=== PATIENT | male | born 1945 | race Caucasian/White ===

== ENCOUNTER 2019-08-29 00:19 | Outpatient (CLI) | payer MEDICARE, BC, SELFPAY ==
[2019-08-29 17:34] LABS: SARS-CoV-2 RNA PCR Negative
== END 2019-08-29 00:20 | disposition home or self-care (01) ==
LOC: ANHCOVIDDT 00:19
PROVIDERS: PCP Family Medicine; Visit Provider Internal Medicine Gastroenterology
DX: Z01.812 Encounter for preprocedural laboratory examination (principal); Z11.59 Encounter for screening for other viral diseases
CPT/HCPCS: 87635; C9803; U0003

== ENCOUNTER 2019-08-31 00:46 | Day surgery (SDC) | payer MEDICARE, BC, SELFPAY ==
[2019-08-24 13:40] VITALS: BMI 34.4
[2019-08-31 06:30] VITALS: BP 116/81; PULSE 62; RESP 20; TEMP 36.8; O2SAT 96
[2019-08-31] MEDS: LACTATED RINGERS 1,000 ML 150 ML IV CONT (06:51)
--- NOTE | 2019-08-31 07:14 | WPDANESEPPF ---
Anes - Initial Pre Proc Eval Procedure: Operation Date: 08/31/19 07:30 Proposed Procedures p Screening Colonoscopy - Jesús Kang MD Date/Time: 08/31/19 07:14 Surgeon: Jesús Kang MD Pre Op Diagnosis: hx of colon polyps Patient Data Age: 74 Gender: M Height: 1.78 m Weight: 108.1 kg Last Vital Signs Temp 36.8 C 08/31/19 06:30 Pulse 62 08/31/19 06:30 Resp 20 08/31/19 06:30 BP 116/81 08/31/19 06:30 Pulse Ox 96 08/31/19 06:30 Allergies Allergy/AdvReac Type Severity Reaction Status Date / Time No Known Allergies Allergy Mild Verified 08/31/19 06:29 Home Medications Medication Instructions Recorded Confirmed Type aspirin 81 mg tablet,delayed 81 mg PO DAILY 02/22/19 08/24/19 History release atorvastatin 20 mg tablet 20 mg PO DAILY 02/22/19 08/24/19 History doxazosin 8 mg tablet 8 mg PO DAILY 02/22/19 08/24/19 History finasteride 5 mg tablet 5 mg PO DAILY 02/22/19 08/24/19 History lisinopril 10 mg tablet 10 mg PO DAILY 02/22/19 08/24/19 History lutein 20 mg tablet 20 mg PO DAILY 02/22/19 08/24/19 History famotidine 20 mg tablet 20 mg PO DAILY PRN 06/29/19 08/24/19 History cholecalciferol (vitamin D3) 50 mcg PO DAILY 08/24/19 08/24/19 History [Vitamin D3] latanoprost 1 drp OPHTHALMIC (EYE) HS 08/24/19 08/24/19 History magnesium citrate 80 mg PO DAILY 08/24/19 08/24/19 History omega 3-ire-ugl-fish oil [Fish Oil] 1 cap PO DAILY 08/24/19 08/24/19 History timolol maleate 1 drp OPHTHALMIC (EYE) DAILY 08/24/19 08/24/19 History Patient hx anesthesia problems: none Family hx anesthesia problems: none PMFSH Past Medical History Medical History (Updated 08/31/19 @ 06:57 by Willian Irizarry DO) Calcaneal fracture Essential (primary) hypertension Gastro-esophageal reflux disease without esophagitis Mixed hyperlipidemia Type 2 diabetes mellitus without complications Surgical History Surgical History H/O hernia repair History of appendectomy Social History Social History Smoking status: Never smoker Alcohol intake: current Gender identity (if verbalized by the patient): Male Anes - Eval Final PreProcedure Day of Procedure 08/31/19 07:14 Patient weight: obese Heart: regular rate and rhythm Lungs: clear to auscultation and normal air movement Airway: Mallampati scale class 1 Neurological: alert and oriented Last oral intake: >/= 8 hours ASA classification: III Emergent: no Anesthetic plan: proceed Anesthesia type and monitoring: general GIVS and standard monitoring Informed Consent: The patient's anesthetic plan and its attendant risks and benefits were discussed with the patient/family/POA. Questions were solicited and answers provided to the satisfaction of the patient/family/POA.
--- NOTE | 2019-08-31 08:05 | WPDGICN ---
Assessment and Plan Assessment and plan (1) History of colon polyps: Code(s): Z86.010 - Personal history of colonic polyps Status: Acute Assessment and Plan: Patient has a history of adenomatous colon polyp removed 2014. Plan is for surveillance colonoscopy now on a 5 year intervals in the future. (2) Obesity: Code(s): E66.9 - Obesity, unspecified Status: Acute GI Consult Note Consult date/time: 08/31/19 08:05 HPI: Sabino Mina is a 74 year old male Seen in evaluation at the request of Dr. Isadora Wiseman. patient has a history of colon polyps. Presents today for follow-up colonoscopy. Patient's current weight appetite bowel movements are normal. He denies abdominal pain. His weight appetite bowel movements are normal. His family history is noncontributory. Review of Systems Review of Systems: All systems reviewed & are unremarkable except as noted in HPI and below PMFSH Past Medical History Medical History Calcaneal fracture Essential (primary) hypertension Gastro-esophageal reflux disease without esophagitis Mixed hyperlipidemia Type 2 diabetes mellitus without complications Surgical History Surgical History H/O hernia repair History of appendectomy Family History Family History Grandparent Family history of cardiovascular disease Cerebrovascular accident Father Diabetes mellitus Mother Diabetes mellitus Sibling Diabetes mellitus Other Family history of glaucoma Social History Social History Smoking status: Never smoker Alcohol intake: current Gender identity (if verbalized by the patient): Male Meds Home Medications and Allergies Home Medications Medication Instructions Recorded Confirmed Type aspirin 81 mg tablet,delayed 81 mg PO DAILY 02/22/19 08/24/19 History release atorvastatin 20 mg tablet 20 mg PO DAILY 02/22/19 08/24/19 History doxazosin 8 mg tablet 8 mg PO DAILY 02/22/19 08/24/19 History finasteride 5 mg tablet 5 mg PO DAILY 02/22/19 08/24/19 History lisinopril 10 mg tablet 10 mg PO DAILY 02/22/19 08/24/19 History lutein 20 mg tablet 20 mg PO DAILY 02/22/19 08/24/19 History famotidine 20 mg tablet 20 mg PO DAILY PRN 06/29/19 08/24/19 History cholecalciferol (vitamin D3) 50 mcg PO DAILY 08/24/19 08/24/19 History [Vitamin D3] latanoprost 1 drp OPHTHALMIC (EYE) HS 08/24/19 08/24/19 History magnesium citrate 80 mg PO DAILY 08/24/19 08/24/19 History omega 9-vyv-lsu-fish oil [Fish Oil] 1 cap PO DAILY 08/24/19 08/24/19 History timolol maleate 1 drp OPHTHALMIC (EYE) DAILY 08/24/19 08/24/19 History Allergies Allergy/AdvReac Type Severity Reaction Status Date / Time No Known Allergies Allergy Mild Verified 08/31/19 06:29 Vital Signs Vital Signs - 24 hr 08/31/19 06:30 Temperature 36.8 C Pulse Rate 62 Respiratory Rate 20 Blood Pressure 116/81 Pulse Oximetry 96 Exam Narrative: Exam Narrative: Physical exam reveals patient to be alert. Vital signs stable. HEENT exam unremarkable. Lungs are clear to auscultation and percussion. Heart is without murmur or extra sounds. Abdominal exam bowel sounds are present soft nontender with no organomegaly. Digital external rectal exam normal.
[2019-08-31 08:07] VITALS: BP 107/63; PULSE 58; RESP 20; O2SAT 96
[2019-08-31 08:17] VITALS: BP 109/70; PULSE 53; RESP 20; O2SAT 96
[2019-08-31 08:27] VITALS: BP 114/77; PULSE 54; RESP 16; O2SAT 96
== END 2019-08-31 08:48 | disposition home or self-care (01) ==
PROVIDERS: PCP Family Medicine; Visit Provider Internal Medicine Gastroenterology
PROC: 0DJD8ZZ Inspection of Lower Intestinal Tract, Via Natural or Artificial Opening Endoscopic (ICD-10-PCS; CPT 45378; principal; 2019-08-31 07:30)
DX: Z12.11 Encounter for screening for malignant neoplasm of colon (principal); K63.5 Polyp of colon; K57.30 Diverticulosis of large intestine without perforation or abscess without bleeding; K64.8 Other hemorrhoids; E66.9 Obesity, unspecified; Z68.34 Body mass index [BMI] 34.0-34.9, adult; I10 Essential (primary) hypertension; E11.9 Type 2 diabetes mellitus without complications; E78.2 Mixed hyperlipidemia; K21.9 Gastro-esophageal reflux disease without esophagitis; Z79.82 Long term (current) use of aspirin
CPT/HCPCS: G0105; J2704; J7120

== ENCOUNTER 2023-10-24 13:58 | Outpatient (CLI) | payer MEDICARE, BC, SELFPAY ==
[2023-10-24 16:05] LABS: Anion Gap 11 mmol/L (4-12); Blood Urea Nitrogen 20 mg/dL (9-20); Calcium 9.4 mg/dL (8.4-10.2); Carbon Dioxide 26 mmol/L (22-30); Chloride 103 mmol/L (98-107); Estimated Glomerular Filt Rate > 60; Glucose 104 mg/dL (65-110); Potassium 3.5 mmol/L (3.4-5.0); Sodium 140 mmol/L (137-145)
== END 2023-10-24 13:59 | disposition home or self-care (01) ==
PROVIDERS: Anesthesiology; PCP Internal Medicine; Visit Provider Urology
DX: E11.9 Type 2 diabetes mellitus without complications (principal)
CPT/HCPCS: 36415; 80048

== ENCOUNTER 2023-10-27 02:13 | Day surgery (SDC) | payer MEDICARE, BC, SELFPAY ==
--- NOTE | 2023-10-21 07:21 | PM.HPGS ---
History of Present Illness History of Present Illness Consent: Risks, benefits, and alternatives have been discussed and questions answered. Patient agrees to proceed with procedure. Chief complaint: elevated psa Narrative: Sabino Mina is a 78 year old male who has never had a prostate biopsy in the past but elevated PSA to 8.88. His prostatism is controlled with oral medications. After discussion of options he is elected for [facility]., MRI guided biopsy. He is aware of the risks including, but not limited to, rectal bleeding, hematuria, fair to a prostate cancer Review of Systems Review of Systems: All systems reviewed & are unremarkable except as noted in HPI and below PMFSH Past Medical History Medical History (Updated 06/30/20 @ 09:25 by Anthony Purvis MD) Calcaneal fracture Essential (primary) hypertension Gastro-esophageal reflux disease without esophagitis Mixed hyperlipidemia Type 2 diabetes mellitus without complications Surgical History Surgical History H/O hernia repair History of appendectomy Family History Family History Grandparent Family history of cardiovascular disease Cerebrovascular accident Father Diabetes mellitus Mother Diabetes mellitus Sibling Diabetes mellitus Other Family history of glaucoma Social History Social History Smoking status: Never smoker Alcohol intake: current Gender identity (if verbalized by the patient): Male Meds Home Medications and Allergies Home Medications Medication Instructions Recorded Confirmed Type aspirin 81 mg tablet,delayed 81 mg PO DAILY 02/22/19 06/30/20 History release atorvastatin 20 mg tablet 20 mg PO DAILY 02/22/19 06/30/20 History doxazosin 8 mg tablet 8 mg PO DAILY 02/22/19 06/30/20 History finasteride 5 mg tablet 5 mg PO DAILY 02/22/19 06/30/20 History lisinopril 10 mg tablet 10 mg PO DAILY 02/22/19 06/30/20 History lutein 20 mg tablet 20 mg PO DAILY 02/22/19 11/01/19 History famotidine 20 mg tablet (Pepcid) 20 mg PO DAILY PRN Acid Reflux 06/29/19 11/01/19 History cholecalciferol (vitamin D3) 50 50 mcg PO DAILY 08/24/19 11/01/19 History mcg (2,000 unit) tablet (Vitamin D3) latanoprost 0.005 % eye drops 1 drp ophthalmic (eye) HS 08/24/19 06/30/20 History magnesium citrate 100 mg tablet 80 mg PO DAILY 08/24/19 11/01/19 History omega 6-elw-ekx-fish oil 900 1 cap PO DAILY 08/24/19 11/01/19 History mg-1,400 mg capsule,delayed release (Fish Oil) timolol maleate 0.5 % eye drops 1 drp ophthalmic (eye) DAILY 08/24/19 06/30/20 History Allergies Allergy/AdvReac Type Severity Reaction Status Date / Time No Known Allergies Allergy Mild Verified 11/01/19 11:51 Exam Const: General: no acute distress Resp: Effort & Inspection: normal respiratory effort GI: Inspection: non-distended GI Palp: No abdominal tenderness and No Guarding due to palpation present (GI) Auscultation: normal bowel sounds Assessment and Plan Assessment and plan (1) Elevated PSA: Code(s): R97.20 - Elevated prostate specific antigen [PSA] Status: Acute Assessment and Plan: [facility] prostate biopsy
[2023-10-24 09:31] VITALS: BMI 32.5
--- NOTE | 2023-10-24 09:48 | PC.NURSE ---
Report to the Outpatient Waiting Room, entrance under the green pavilion located off [facility], at time ___9:00AM____ on date ___10/27/23____. Planned Procedure Time: __11:00AM . Time changes happen often and if your time is changed the preop area will call you the afternoon before. - You and your visitor will be asked to self-screen and do not enter if you have any COVID symptoms. - A mask is optional within the hospital at this time. Patients may have clear liquids (water, carbonated beverages, clear teas, apple juice) until 3 hours prior to surgery with a maximum of 20 ounces. - No food from midnight until time of surgery. Take the following medications with a SIP of water the morning of surgery: ____NONE DO NOT STOP ANY OF YOUR OTHER PRESCRIPTION MEDICATIONS PRIOR TO SURGERY ?EXCEPT THE FOLLOWING Medications to discontinue per physician ____HOLD ASPIRIN AND ALL VITAMINS/SUPPLEMENTS 7 DAYS PRE-OP PER DR DE ANDA Date to take last dose____10/19/23 Please no make-up, nail mohawk, hairspray, perfume, deodorant, or body powder the day of surgery. No jewelry (including any body piercings) or valuables the day of surgery, leave them at home. Please take a shower or bath the night before, or the morning of, surgery with an antibacterial soap. Wear comfortable, loose fitting clothing. - Jewelry must be removed prior to entering the operating room. Rings and piercings that are not removed may be cut off. - The hospital will not accept responsibility for valuables. - Please leave all valuables, including medications, at home the day of surgery. If you are going home after surgery, a licensed airport driver must drive you home. - NO public transportation without another adult if you receive anesthesia. - We recommend that an adult stay with you for 24 hours following discharge. - We also recommend that you do not drive, make important decision, drink alcoholic beverages, or take any drugs that were not prescribed by your health care provider for at least 24 hours after your discharge time. Follow any additional instructions given to you from your surgeon. If you or anyone in your household have experienced Covid symptoms in the past week, please notify your surgeon or the nurse liaison at the phone number below for possible testing. Telephone instructions given to ___PATIENT and asked if any additional questions and then verbalized understanding. Patient advised to call surgeon office or pre surgery nurse liaison [phone] if any additional questions.
--- NOTE | 2023-10-27 06:05 | WPDHPUPDATE1 ---
History and Physical Update Update Date/Time: 10/27/23 06:05 History and Physical has been reviewed, including an updated exam of the patient. There are NO changes in the patient's condition. Risks, benefits, and alternatives have been discussed and questions answered. Patient agrees to proceed with procedure.
--- NOTE | 2023-10-27 09:18 | WPDANESEPPF ---
Anes - Initial Pre Proc Eval Procedure: Operation Date: 10/27/23 11:00 Proposed Procedures p Transrectal Ultrasound Fusion Guided Prostate Biopsy - Bradley Whitfield MD Date/Time: 10/27/23 09:18 Surgeon: Bradley Whitfield MD Pre Op Diagnosis: elevated psa Patient Data Age: 78 Gender: M Height: 1.8 m Weight: 106 kg Allergies Allergy/AdvReac Type Severity Reaction Status Date / Time No Known Allergies Allergy Mild Verified 10/24/23 09:24 Home Medications Medication Instructions Recorded Confirmed Type aspirin 81 mg tablet,delayed 81 mg PO DAILY 02/22/19 10/24/23 History release atorvastatin 20 mg tablet 20 mg PO DAILY 02/22/19 10/24/23 History doxazosin 8 mg tablet 8 mg PO DAILY 02/22/19 10/24/23 History finasteride 5 mg tablet 5 mg PO DAILY 02/22/19 10/24/23 History lisinopril 10 mg tablet 10 mg PO DAILY 02/22/19 10/24/23 History lutein 20 mg tablet 20 mg PO DAILY 02/22/19 10/24/23 History cholecalciferol (vitamin D3) 50 50 mcg PO DAILY 08/24/19 10/24/23 History mcg (2,000 unit) tablet (Vitamin D3) magnesium citrate 100 mg tablet 80 mg PO DAILY 08/24/19 10/24/23 History semaglutide 0.25 mg or 0.5 mg (2 0.5 mg subcut WEEKLY 10/24/23 10/24/23 History mg/3 mL) subcutaneous pen injector (Ozempic) tadalafil 20 mg tablet 20 mg PO ONCE PRN Erectile 10/24/23 10/24/23 History Dysfunction Patient hx anesthesia problems: none Family hx anesthesia problems: none Results Review: All pre-operative results and documents have been reviewed as part of the pre-operative evaluation. [facility] Past Medical History Medical History Calcaneal fracture Essential (primary) hypertension Gastro-esophageal reflux disease without esophagitis Mixed hyperlipidemia Type 2 diabetes mellitus without complications Surgical History Surgical History H/O hernia repair History of appendectomy Family History Family History Grandparent Family history of cardiovascular disease Cerebrovascular accident Father Diabetes mellitus Mother Diabetes mellitus Sibling Diabetes mellitus Other Family history of glaucoma Social History Social History Smoking status: Never smoker Alcohol intake: current Drinks per week: 6 Living arrangements: with family Additional living arrangements comments: Gender identity (if verbalized by the patient): Male Spiritual care concerns: No Anes - Eval Final PreProcedure Day of Procedure 10/27/23 09:18 Patient weight: obese Heart: regular rate and rhythm Lungs: clear to auscultation Airway: Mallampati scale class II Neurological: alert and oriented Last oral intake: >/= 8 hours ASA classification: III Emergent: no Anesthetic plan: proceed Anesthesia type and monitoring: general LMA and standard monitoring Results Review: All pre-operative results and documents have been reviewed as part of the pre-operative evaluation. HTN, hyperlipidemia, DM on ozempic (last dose approx 10 days ago). Informed Consent: The patient's anesthetic plan and its attendant risks and benefits were discussed with the patient/family/POA. Questions were solicited and answers provided to the satisfaction of the patient/family/POA.
[2023-10-27] MEDS: LACTATED RINGERS 1,000 ML 30 ML IV CONT (10:00)
[2023-10-27 10:30] VITALS: BP 130/82; PULSE 51; RESP 18; TEMP 37; O2SAT 96
[2023-10-27 10:32] LABS: Glucose Point of Care 90 mg/dl (65-105)
[2023-10-27 11:20] VITALS: BP 106/64; PULSE 52; RESP 14; O2SAT 96
--- NOTE | 2023-10-27 11:23 | P.OP_ITS ---
Procedure Note - Detailed Date of Procedure 10/27/23 Pre-op Diagnosis Elevated PSA, abnormal prostate MRI Post-op Diagnosis Same Procedure Performed [facility] prostate biopsy Surgeon Bradley Whitfield MD Anesthesia General Description of Procedure Patient is brought to the operative suite where he is positioned in the left lateral position. Systemic sedation is administered per the anesthesia department. Surgical time-out is undertaken and it's verified the patient has received preoperative antibiotics. Transrectal ultrasonography is undertaken with a standard transrectal probe. The [employer] system is used to superimpose his previously obtained mpMRI prostate images on the real-time transrectal ultrasond images. Prostate volume is calculated at 74.7cc. On the previous mpMRI there are one regions of interest. Using the transrectal needle design for prostate biopsies 3 cores from that region of interest was obtained. We then proceeded with a standard 12 core prostate biopsy. Transrectal probe was removed and patient taken to recovery room having tolerated the procedure well. Blood loss was less than 10 cc. Drains No Packing No Pathology Yes Complications No immediate complications
[2023-10-27 11:26] LABS: Glucose Point of Care 97 mg/dl (65-105)
[2023-10-27 11:50] VITALS: BP 119/71; PULSE 44; RESP 16
== END 2023-10-27 12:00 | disposition home or self-care (01) ==
PROVIDERS: PCP Internal Medicine; Visit Provider Urology
PROC: (CPT 55700; principal; 2023-10-27 11:00)
DX: C61 Malignant neoplasm of prostate (principal); I10 Essential (primary) hypertension; E78.2 Mixed hyperlipidemia; K21.9 Gastro-esophageal reflux disease without esophagitis; E11.9 Type 2 diabetes mellitus without complications; E66.9 Obesity, unspecified; Z68.32 Body mass index [BMI] 32.0-32.9, adult; Z79.82 Long term (current) use of aspirin; Z79.85 Long-term (current) use of injectable non-insulin antidiabetic drugs; Z98.890 Other specified postprocedural states; Z82.49 Family history of ischemic heart disease and other diseases of the circulatory system
CPT/HCPCS: 76872; 55700; 82948; G0416; J0696; J2704; J7120